=== PATIENT | female | born 1960 | race Caucasian/White ===

== ENCOUNTER 2017-05-29 17:52 | Emergency (ER) | payer MEDICAID ==
[2017-05-29 17:55] VITALS: BP 142/97; PULSE 84; RESP 16; TEMP 98.2; O2SAT 98
--- NOTE | 2017-05-29 19:23 | RADRPT ---
EXAM DATE/TIME: 05/29/2017 19:06 [place] COMPARISON: No previous studies available for comparison. INDICATIONS : Pain and swelling in the right wrist. MEDICAL HISTORY : None. SURGICAL HISTORY : None. ENCOUNTER: Initial ACUITY: 1 day PAIN SCORE: 9/10 LOCATION: Right wrist FINDINGS: Limited AP and lateral views of the right wrist were obtained and demonstrate a mildly comminuted tra nsverse fracture through the distal radius approximately 1 cm from the carpal joint. There may be a s ubtle fracture line extending into the radiocarpal joint. The carpus is intact. There are mild osteoa rthritic changes with sclerosis and slight narrowing. There is overlying soft tissue swelling. There is no abnormal angulation or significant distraction. The distal ulna appears intact. CONCLUSION: 1. Mildly comminuted fracture of the distal radius. 2. Osteopenia and mild osteoarthritic change. Jasper Markham MD on May 29, 2017 at 19:20 Board Certified Radiologist. This report was verified electronically.
[2017-05-29] MEDS ORDERED: ACETAMINOPHEN/HYDROcodone 325 MG/5 MG TAB PO ONE (20:30)
[2017-05-29] MEDS ORDERED: ASPI325T PO (20:31)
[2017-05-29 20:32] VITALS: BP 177/91; PULSE 90; RESP 16; O2SAT 98
--- NOTE | 2017-05-29 20:36 | PD ---
HPI Chief Complaint: Injury Time Seen by Provider: 20:23 Travel History International Travel<30 days: No Contact w/Intl Traveler<30days: No Traveled to known affect area: No History of Present Illness HPI 57-year-old female here for evaluation of right distal forearm/wrist pain after a slip [place] fall [place]. The patient reports slipping and falling forward onto an outstretched arm. Pain in her right wrist is 9 out of 10, constant, worse with movement and palpation. She denies any other injuries. No head injury or LOC. She is left-handed. The patient is from [place] and is here on vacation. Right wrist x-ray ordered in triage and shows a slightly comminuted distal radius fracture. [facility] Social History Tobacco Use: No Allergies-Medications (Allergen,Severity, Reaction): Coded Allergies: Robaxin (Verified Allergy, Unknown, 05/29/17) Reported Meds & Prescriptions Reported Meds & Active Scripts Active Lortab (Hydrocodone-Acetaminophen) 5-325 Mg Tab 1 Tab PO Q6H PRN Reported Aspirin 325 Mg Tab 325 Mg PO DAILY Review of Systems Except as stated in HPI: all other systems reviewed are Neg Physical Exam Narrative GENERAL: Well-developed, well-nourished, comfortable, no apparent distress. SKIN: Focused skin assessment warm/dry. No lacerations, abrasions, or ecchymosis. HEAD: Atraumatic. Normocephalic. EYES: Pupils equal and round. No scleral icterus. No injection or drainage. ENT: Mucous membranes pink and moist. NECK: Trachea midline. No JVD. No midline cervical spine step-off or tenderness. CARDIOVASCULAR: Regular rate and rhythm. Bilateral distal radial pulses are brisk and equal. MUSCULOSKELETAL: Right distal radius with obvious deformity with tenderness over the area of deformity and limited range of motion in the right wrist secondary to pain. The rest of the patient's joints and extremities are without deformity, without tenderness, with normal range of motion. NEUROLOGICAL: Awake and alert. No obvious cranial nerve deficits. Motor grossly within normal limits. Normal speech. Normal sensation in right hand/ extremity. PSYCHIATRIC: Appropriate mood and affect; insight and judgment normal. Data Data Last Documented VS Vital Signs Date Time Temp Pulse Resp B/P Pulse Ox O2 Delivery O2 Flow Rate FiO2 05/29/17 20:32 90 16 177/91 98 05/29/17 17:55 98.2 Orders Wrist, Limited (Ap&Lat) (05/29/17 ) Acetamin-Hydrocod 325-5 Mg ([place] 5-325 (05/29/17 20:30) Splint Or Brace Apply/Monitor (05/29/17 21:46) Sling Cradle Arm (05/29/17 ) Sling Cradle Arm (05/29/17 ) Fiberglass Sugartong Sp Ad Arm (05/29/17 ) MDM Medical Decision Making Medical Screen Exam Complete: Yes Emergency Medical Condition: Yes Differential Diagnosis Right wrist fracture versus sprain Narrative Course Right wrist x-ray shows a mildly comminuted distal radius fracture which is only mildly angulated with no displacement. This fracture is closed. Right forearm placed in a sugar tong splint and the patient was provided a shoulder sling. Patient advised to take her arm out of the sling every couple of hours to move her shoulder around to prevent a frozen shoulder. The patient is from [place] and is returning in 6 days. She is here vacation. A call was placed orthopedic surgeon on-call, however there was no call back. In my opinion, this fracture may heal with splinting/casting alone, and the patient can follow-up with orthopedist in the next week as an outpatient. She will call her primary care physician tomorrow to help her arrange for this for when she returns to [place] in 1 week. I will discharge her home with a prescription for Lortab. She was informed on when to return to the emergency department. She verbalizes understanding and agreement with plan. Diagnosis Primary Impression: Closed fracture of right distal radius Qualified Code: S52.591A - Other closed fracture of distal end of right radius , initial encounter Referrals: Marcus Neil MD 1 week Orthopedist Orthopedist 1 week Primary Care Physician 1 week Additional Instructions: Follow-up with your primary care physician when he returns to [place] next week. Follow-up with an orthopedic surgeon next week. Return to the emergency department for worsening symptoms or any other concerns as discussed. Scripts Hydrocodone-Acetaminophen (Lortab)5-325 Mg Tab1 Tab PO Q6H PRN (PAIN) #20 TAB Ref 0 Prov:Davi Rosa MD 05/29/17 Disposition: 01 DISCHARGE HOME Condition: Stable Davi Rosa MD May 29, 2017 20:35
[2017-05-29] MEDS ORDERED: HYDR-3533 PO (21:01)
== END 2017-05-29 21:24 | disposition home or self-care (01) ==
LOC: NEPD 17:52
DX: S52.501A Unspecified fracture of the lower end of right radius, initial encounter for closed fracture (principal); M85.88 Other specified disorders of bone density and structure, other site; W01.0XXA Fall on same level from slipping, tripping and stumbling without subsequent striking against object, initial encounter; Y92.830 Public park as the place of occurrence of the external cause; Z79.82 Long term (current) use of aspirin
CPT/HCPCS: 29125; 73100